=== PATIENT | female | born 1945 | race Caucasian/White ===

== ENCOUNTER 2017-11-23 18:08 | Emergency (ER) | payer MEDICARE ==
[2017-11-23] MEDS: HYDROcodone/APAP 5/325MG 1 TAB TABLET PO (19:28)
== END 2017-11-23 19:40 | disposition home or self-care (01) ==
LOC: ER 18:08
DX: S42.202A Unspecified fracture of upper end of left humerus, initial encounter for closed fracture (principal); E78.00 Pure hypercholesterolemia, unspecified; E11.9 Type 2 diabetes mellitus without complications; E03.9 Hypothyroidism, unspecified; I10 Essential (primary) hypertension; W01.0XXA Fall on same level from slipping, tripping and stumbling without subsequent striking against object, initial encounter; Y93.89 Activity, other specified; Y99.8 Other external cause status; Y92.89 Other specified places as the place of occurrence of the external cause
CPT/HCPCS: 29240; 73030; 99284-25